=== PATIENT | male | born 1990 | race Caucasian/White ===

== ENCOUNTER 2018-06-05 05:17 | Inpatient (IN) | payer MEDICAID ==
[~2018-06-05] VITALS: Ht 182.9 cm; Wt 80.0 kg
[2018-06-05] MEDS: NALOXONE 0.4 MG/ML, 1ML IVPush PRN (05:30)
[2018-06-05] MEDS ORDERED: ONDANSETRON ODT 4 MG ONE (05:48)
[2018-06-05] MEDS ORDERED: PIPERACILLIN/TAZO/PMX 3.375GM 50 ML ONE (05:52)
[2018-06-05] MEDS ORDERED: PIPERACILLIN/TAZO/PMX 3.375GM 50 ML IVPB ONE (06:00)
[2018-06-05] MEDS ORDERED: ONDANSETRON ODT 4 MG PO ONE (06:00)
[2018-06-05 06:08] LABS: MEAN CORPUSCULAR HEMOGLOBIN 29.7 pg (27.5-34.5); MEAN CORPUSCULAR HGB CONC 34.2 g/dL (33.2-36.2); MEAN CORPUSCULAR VOLUME 86.9 fL (81-97); MEAN PLATELET VOLUME 7.7 fL (7.4-10.4); PLATELET COUNT 385 x10^3/uL (130-400); RED BLOOD COUNT 5.32 x10^6/uL (4.38-5.82); RED CELL DISTRIBUTION WIDTH 14.3 % (9.4-14.8)
[2018-06-05] MEDS ORDERED: FLUO40CA9 PO (06:10)
[2018-06-05] MEDS ORDERED: LITH150C PO (06:10)
[2018-06-05] MEDS ORDERED: GABA600T2 PO (06:10)
[2018-06-05] MEDS ORDERED: TRAM50TA2 PO (06:10)
[2018-06-05] MEDS ORDERED: MIRT15TA3 PO (06:10)
[2018-06-05] MEDS ORDERED: CLON1TAB PO (06:10)
[2018-06-05 06:16] LABS: ANION GAP 11 mmol/L (5-15); CALCIUM 9.1 mg/dL (8.5-10.1); CHLORIDE 103 mmol/L (98-107)
[2018-06-05 06:20] LABS: ALANINE AMINOTRANSFERASE 58 U/L (12-78); ALKALINE PHOSPHATASE 106 U/L (45-117); BILIRUBIN,TOTAL 0.5 mg/dL (0.2-1.0); CREATININE 1.46 mg/dL (0.7-1.3); TOTAL PROTEIN 8.4 g/dL (6.4-8.2)
[2018-06-05 06:22] LABS: ACETAMINOPHEN < 2 mcg/mL (10-30)
[2018-06-05 06:30] LABS: MD YES
[2018-06-05] MEDS ORDERED: SODIUM CHLORIDE 0.9% 1,000ML IVBOLUS ONE (06:30)
[2018-06-05 06:31] LABS: BAND#(MANUAL) 4.88 x10^3/uL; BANDS%(MANUAL) 19 % (0-7); LYMPH#(MANUAL) 1.29 x10^3/uL (1-3.4); LYMPHS% (MANUAL) 5 % (22-44); MONOS#(MANUAL) 1.29 x10^3/uL (0.3-2.7); MONOS% (MANUAL) 5 % (2-9); SEG#(MANUAL) 18.25 x10^3/uL (1.8-6.8); SEGS% (MANUAL) 71 % (42-75)
[2018-06-05 06:32] LABS: <PLATELET ESTIMATE> ADEQUATE; <PLT MORPHOLOGY> NORMAL PLT MORPH; <RBC MORPHOLOGY> NORMAL
[2018-06-05 07:05] LABS: FIO2 80 %
[2018-06-05] MEDS ORDERED: BISACODYL 10 MG SUPP PR PRN (08:00)
[2018-06-05] MEDS ORDERED: ONDANSETRON 2MG/ML, 2ML IVPush PRN (08:00)
[2018-06-05] MEDS ORDERED: POLYETHYLENE GLYCOL 17 GM PACKET PO PRN (08:00)
[2018-06-05] MEDS ORDERED: ENALAPRILAT 1.25 MG/ML, 2ML IVPush PRN (08:00)
[2018-06-05] MEDS ORDERED: ONDANSETRON ODT 4 MG PO PRN (08:00)
[2018-06-05] MEDS ORDERED: ALBUTEROL 0.5%, 20ML ONE (08:31)
[2018-06-05] MEDS: ENOXAPARIN 40 MG/0.4 ML SQ SCH (10:58)
[2018-06-05] MEDS: SENNA/DOCUSATE TABLET PO SCH (10:59)
[2018-06-05] MEDS: FLUOXETINE HCL 20 MG CAPSULE PO SCH (11:00)
[2018-06-05] MEDS: FAMOTIDINE 20 MG TABLET PO SCH ×2 (11:02→21:00)
[2018-06-05] MEDS: GABAPENTIN 300 MG CAPSULE PO SCH ×3 (11:08→21:00)
[2018-06-05] MEDS: ALBUTEROL SULFATE 2.5 MG/3 ML NPPB SCH ×4 (11:30→23:15)
[2018-06-05] MEDS ORDERED: ALBUTEROL SULFATE 2.5 MG/3 ML ONE (11:31)
[2018-06-05] MEDS: AMPICILLIN/SULBACTAM 3 GM in SODIUM CHLORIDE 0.9% 100 ML IV SCH ×3 (11:38→22:40)
[2018-06-05] MEDS: LORazepam 1MG TABLET PO PRN ×2 (12:03→15:42)
[2018-06-05 13:27] LABS: AMPHETAMINE SCREEN, URINE Positive (Negative); BARBITURATE SCREEN, URINE Negative (Negative); BENZODIAZEPINE SCREEN, URINE Positive (Negative); CANNABINOID SCREEN, URINE Negative (Negative); COCAINE SCREEN, URINE Negative (Negative); METHADONE SCREEN, URINE Negative (Negative); OPIATE SCREEN, URINE Positive (Negative)
[2018-06-05] MEDS ORDERED: LORazepam 2 MG/ML, 1ML ONE (14:14)
[2018-06-05] MEDS: SODIUM BICARBONATE 4.0%, 5ML NPPB SCH ×3 (14:19→23:00)
[2018-06-05] MEDS ORDERED: DEXTROMETHORPHAN 30 MG/5 ML ORAL SOL PO PRN (14:30)
[2018-06-05] MEDS ORDERED: LORazepam 2 MG/ML, 1ML IVPush PRN (14:30)
[2018-06-05] MEDS ORDERED: PROPOFOL 100 ML IV ONE (16:16)
[2018-06-05] MEDS ORDERED: VECURONIUM 10 MG ONE ×2 (16:18→16:39)
[2018-06-05] MEDS ORDERED: LIDOCAINE-MPF 1%, 2ML ENDO PRN (16:30)
[2018-06-05] MEDS ORDERED: PHARMACY MAY ADJ FOR RENAL FX MC SCH (16:30)
[2018-06-05] MEDS ORDERED: VECURONIUM 50 MG in SODIUM CHLORIDE 0.9% 250 ML IV PRN (17:30)
[2018-06-05] MEDS: PROPOFOL 100 ML IV PRN (19:03)
[2018-06-05 19:57] VITALS: BP 108/61
[2018-06-05] MEDS: SODIUM CHLORIDE 0.9% 1,000 ML IV SCH ×2 (20:16→22:40)
[2018-06-05] MEDS: LITHIUM CARBONATE 150 MG CAPSULE PO SCH (21:00)
[2018-06-05] MEDS: MIRTAZAPINE 15 MG TAB.RAPDIS PO SCH (21:00)
[2018-06-05] MEDS: RISPERIDONE 0.5 MG TABLET PO SCH (21:00)
[2018-06-05 21:28] LABS: CULTURE INDICATED? NO; MICROSCOPIC NOT IND
[2018-06-05] MEDS: FENTANYL PF 100 MCG/2ML IVPush PRN (22:39)
[2018-06-05] MEDS: ACETAMINOPHEN 325 MG TABLET PO PRN (22:40)
[2018-06-06] MEDS: PROPOFOL 100 ML IV PRN ×3 (00:13→08:11)
[2018-06-06] MEDS: SODIUM BICARBONATE 4.0%, 5ML NPPB SCH (02:19)
[2018-06-06] MEDS: ALBUTEROL SULFATE 2.5 MG/3 ML NPPB SCH ×6 (02:19→22:36)
[2018-06-06] MEDS: FENTANYL PF 100 MCG/2ML IVPush PRN ×6 (03:40→16:09)
[2018-06-06 04:00] VITALS: BP 114/68
[2018-06-06] MEDS: AMPICILLIN/SULBACTAM 3 GM in SODIUM CHLORIDE 0.9% 100 ML IV SCH ×4 (04:06→23:04)
[2018-06-06 04:27] LABS: MEAN CORPUSCULAR HEMOGLOBIN 29.3 pg (27.5-34.5); MEAN CORPUSCULAR VOLUME 86.2 fL (81-97); MEAN PLATELET VOLUME 7.7 fL (7.4-10.4); PLATELET COUNT 212 x10^3/uL (130-400); RED BLOOD COUNT 3.64 x10^6/uL (4.38-5.82); RED CELL DISTRIBUTION WIDTH 14.5 % (9.4-14.8)
[2018-06-06 04:35] LABS: ALANINE AMINOTRANSFERASE 38 U/L (12-78); ALBUMIN 2.7 g/dL (3.4-5.0); ANION GAP 5 mmol/L (5-15); CALCIUM 8.2 mg/dL (8.5-10.1); CHLORIDE 104 mmol/L (98-107)
[2018-06-06 04:38] LABS: ALKALINE PHOSPHATASE 53 U/L (45-117); BILIRUBIN,TOTAL 0.5 mg/dL (0.2-1.0); CREATININE 0.73 mg/dL (0.7-1.3); TOTAL PROTEIN 6.2 g/dL (6.4-8.2)
[2018-06-06 05:38] LABS: MD YES
[2018-06-06 05:41] LABS: <PLATELET ESTIMATE> ADEQUATE; <PLT MORPHOLOGY> NORMAL PLT MORPH; <RBC MORPHOLOGY> NORMAL; BAND#(MANUAL) 1.11 x10^3/uL; BANDS%(MANUAL) 7 % (0-7); LYMPH#(MANUAL) 1.26 x10^3/uL (1-3.4); LYMPHS% (MANUAL) 8 % (22-44); MONOS#(MANUAL) 0.63 x10^3/uL (0.3-2.7); MONOS% (MANUAL) 4 % (2-9); SEGS% (MANUAL) 81 % (42-75)
[2018-06-06] MEDS: FLUOXETINE HCL 20 MG CAPSULE PO SCH (08:02)
[2018-06-06] MEDS: GABAPENTIN 300 MG CAPSULE PO SCH ×3 (08:02→19:14)
[2018-06-06] MEDS: RISPERIDONE 0.5 MG TABLET PO SCH ×2 (08:02→19:14)
[2018-06-06] MEDS: SENNA/DOCUSATE TABLET PO SCH (08:02)
[2018-06-06] MEDS: FAMOTIDINE 20 MG TABLET PO SCH ×2 (08:02→19:14)
[2018-06-06] MEDS: ENOXAPARIN 40 MG/0.4 ML SQ SCH (08:03)
[2018-06-06] MEDS: LITHIUM CARBONATE 150 MG CAPSULE PO SCH ×2 (08:03→19:13)
[2018-06-06] MEDS: SODIUM CHLORIDE 0.9% 1,000 ML IV SCH (08:07)
[2018-06-06] MEDS ORDERED: FUROSEMIDE 40 MG/4 ML ONE (08:08)
[2018-06-06] MEDS: MIDAZOLAM HCL 50 MG in SODIUM CHLORIDE 0.9% 240 ML IV PRN ×3 (08:49→22:02)
[2018-06-06] MEDS: FUROSEMIDE 40 MG/4 ML IV SCH (08:49)
[2018-06-06] MEDS: VECURONIUM 50 MG in SODIUM CHLORIDE 0.9% 250 ML IV PRN ×2 (09:44→15:57)
[2018-06-06] MEDS: MIRTAZAPINE 15 MG TAB.RAPDIS PO SCH (19:14)
[2018-06-06] MEDS: FENTANYL PF 2,500 MCG in SODIUM CHLORIDE 0.9% 200 ML IV PRN (22:03)
[2018-06-07] MEDS: MIDAZOLAM HCL 50 MG in SODIUM CHLORIDE 0.9% 240 ML IV PRN ×2 (01:29→07:50)
[2018-06-07] MEDS: ALBUTEROL SULFATE 2.5 MG/3 ML NPPB SCH ×6 (03:00→22:19)
[2018-06-07 04:00] VITALS: BP 97/54
[2018-06-07 04:43] LABS: BASOPHILS # (AUTO) 0.03 x10^3/uL (0-0.1); BASOPHILS % (AUTO) 0 % (0-1); EOSINOPHILS # (AUTO) 0.32 x10^3/uL (0-0.4); EOSINOPHILS % (AUTO) 3 % (1-7); LYMPHOCYTES # (AUTO) 1.22 x10^3/uL (1-3.4); LYMPHOCYTES % (AUTO) 11 % (22-44); MD NO; MEAN CORPUSCULAR HEMOGLOBIN 30.1 pg (27.5-34.5); MEAN CORPUSCULAR HGB CONC 34.7 g/dL (33.2-36.2); MEAN CORPUSCULAR VOLUME 86.7 fL (81-97); MEAN PLATELET VOLUME 7.9 fL (7.4-10.4); MONOCYTES # (AUTO) 0.63 x10^3/uL (0.2-0.8); MONOCYTES % (AUTO) 6 % (2-9); NEUTROPHILS # (AUTO) 8.88 x10^3/uL (1.8-6.8); NEUTROPHILS % (AUTO) 80 % (42-75); PLATELET COUNT 176 x10^3/uL (130-400); RED BLOOD COUNT 3.37 x10^6/uL (4.38-5.82); RED CELL DISTRIBUTION WIDTH 14.1 % (9.4-14.8)
[2018-06-07] MEDS: AMPICILLIN/SULBACTAM 3 GM in SODIUM CHLORIDE 0.9% 100 ML IV SCH ×4 (05:53→22:39)
[2018-06-07] MEDS ORDERED: MAGNESIUM SULFATE PMX 2GM/50ML 50 ML IV ONE (07:00)
[2018-06-07] MEDS: DEXMEDETOMIDINE 1,000 MCG in SODIUM CHLORIDE 0.9% 240 ML IV PRN ×2 (07:33→23:19)
[2018-06-07 07:37] LABS: ALANINE AMINOTRANSFERASE 29 U/L (12-78); ALBUMIN 2.7 g/dL (3.4-5.0); ANION GAP 6 mmol/L (5-15); CALCIUM 8.8 mg/dL (8.5-10.1); CHLORIDE 104 mmol/L (98-107); CREATININE 0.62 mg/dL (0.7-1.3)
[2018-06-07 07:39] LABS: ALKALINE PHOSPHATASE 56 U/L (45-117); BILIRUBIN,TOTAL 0.7 mg/dL (0.2-1.0); TOTAL PROTEIN 6.6 g/dL (6.4-8.2)
[2018-06-07] MEDS ORDERED: ZIPRASIDONE 20 MG INJ IM PRN (08:30)
[2018-06-07] MEDS ORDERED: VECURONIUM 50 MG in SODIUM CHLORIDE 0.9% 250 ML IV PRN (09:00)
[2018-06-07] MEDS: ENOXAPARIN 40 MG/0.4 ML SQ SCH (09:44)
[2018-06-07] MEDS: FLUOXETINE HCL 20 MG CAPSULE PO SCH (09:45)
[2018-06-07] MEDS: SENNA/DOCUSATE TABLET PO SCH (09:45)
[2018-06-07] MEDS: FAMOTIDINE 20 MG TABLET PO SCH ×2 (09:45→20:15)
[2018-06-07] MEDS: GABAPENTIN 300 MG CAPSULE PO SCH ×3 (09:45→20:16)
[2018-06-07] MEDS: RISPERIDONE 0.5 MG TABLET PO SCH ×2 (09:45→20:16)
[2018-06-07] MEDS: LITHIUM CARBONATE 150 MG CAPSULE PO SCH ×2 (09:46→20:16)
[2018-06-07] MEDS: FUROSEMIDE 40 MG/4 ML IV SCH (09:46)
[2018-06-07] MEDS ORDERED: AcetaZOLAMIDE INJ 500 MG IVPush ONE (10:05)
[2018-06-07] MEDS ORDERED: AcetaZOLAMIDE INJ 500 MG IVPush SCH (17:00)
[2018-06-07] MEDS: MIRTAZAPINE 15 MG TAB.RAPDIS PO SCH (20:16)
[2018-06-07] MEDS: FENTANYL PF 2,500 MCG in SODIUM CHLORIDE 0.9% 200 ML IV PRN (23:19)
[2018-06-08] MEDS: ALBUTEROL SULFATE 2.5 MG/3 ML NPPB SCH ×3 (02:17→10:17)
[2018-06-08 03:58] VITALS: BP 106/67
[2018-06-08 05:12] LABS: BASOPHILS # (AUTO) 0.02 x10^3/uL (0-0.1); BASOPHILS % (AUTO) 0 % (0-1); EOSINOPHILS # (AUTO) 0.65 x10^3/uL (0-0.4); EOSINOPHILS % (AUTO) 8 % (1-7); LYMPHOCYTES # (AUTO) 1.42 x10^3/uL (1-3.4); LYMPHOCYTES % (AUTO) 16 % (22-44); MD NO; MEAN CORPUSCULAR HEMOGLOBIN 29.7 pg (27.5-34.5); MEAN CORPUSCULAR VOLUME 87.4 fL (81-97); MEAN PLATELET VOLUME 8.1 fL (7.4-10.4); MONOCYTES # (AUTO) 0.61 x10^3/uL (0.2-0.8); MONOCYTES % (AUTO) 7 % (2-9); NEUTROPHILS # (AUTO) 5.92 x10^3/uL (1.8-6.8); NEUTROPHILS % (AUTO) 69 % (42-75); PLATELET COUNT 220 x10^3/uL (130-400); RED CELL DISTRIBUTION WIDTH 13.1 % (9.4-14.8)
[2018-06-08] MEDS: AMPICILLIN/SULBACTAM 3 GM in SODIUM CHLORIDE 0.9% 100 ML IV SCH ×4 (05:38→23:15)
[2018-06-08] MEDS: SENNA/DOCUSATE TABLET PO SCH (10:14)
[2018-06-08] MEDS: RISPERIDONE 0.5 MG TABLET PO SCH (10:14)
[2018-06-08] MEDS: FLUOXETINE HCL 20 MG CAPSULE PO SCH (10:14)
[2018-06-08] MEDS: LITHIUM CARBONATE 150 MG CAPSULE PO SCH ×2 (10:14→21:47)
[2018-06-08] MEDS: ENOXAPARIN 40 MG/0.4 ML SQ SCH (10:14)
[2018-06-08] MEDS: FAMOTIDINE 20 MG TABLET PO SCH (10:14)
[2018-06-08] MEDS: GABAPENTIN 300 MG CAPSULE PO SCH ×3 (10:15→21:47)
[2018-06-08] MEDS: IBUPROFEN 600 MG TABLET PO PRN (10:15)
[2018-06-08] MEDS ORDERED: ONDANSETRON ODT 4 MG PO PRN (10:30)
[2018-06-08] MEDS: MIRTAZAPINE 15 MG TAB.RAPDIS PO SCH (21:47)
[2018-06-09 04:19] VITALS: BP 98/67
[2018-06-09] MEDS: AMPICILLIN/SULBACTAM 3 GM in SODIUM CHLORIDE 0.9% 100 ML IV SCH ×4 (05:11→23:19)
[2018-06-09] MEDS: GABAPENTIN 300 MG CAPSULE PO SCH ×3 (09:19→20:00)
[2018-06-09] MEDS: LITHIUM CARBONATE 150 MG CAPSULE PO SCH ×2 (09:19→20:00)
[2018-06-09] MEDS: ENOXAPARIN 40 MG/0.4 ML SQ SCH (09:19)
[2018-06-09] MEDS: FLUOXETINE HCL 20 MG CAPSULE PO SCH (09:19)
[2018-06-09] MEDS: SENNA/DOCUSATE TABLET PO SCH (09:21)
[2018-06-09 11:46] VITALS: BP 116/78
[2018-06-09] MEDS: ACETAMINOPHEN 325 MG TABLET PO PRN (11:48)
[2018-06-09 13:11] VITALS: BP 100/58
[2018-06-09 19:48] VITALS: BP 119/65
[2018-06-09] MEDS: MIRTAZAPINE 15 MG TAB.RAPDIS PO SCH (20:00)
[2018-06-10] MEDS ORDERED: DIPHENHYDRAMINE 25 MG CAPSULE PO ONE (01:00)
[2018-06-10 01:34] VITALS: BP 115/69
[2018-06-10] MEDS: AMPICILLIN/SULBACTAM 3 GM in SODIUM CHLORIDE 0.9% 100 ML IV SCH ×4 (05:18→23:55)
[2018-06-10 07:08] VITALS: BP 102/65
[2018-06-10] MEDS: LITHIUM CARBONATE 150 MG CAPSULE PO SCH ×2 (08:15→20:38)
[2018-06-10] MEDS: FLUOXETINE HCL 20 MG CAPSULE PO SCH (08:15)
[2018-06-10] MEDS: ACETAMINOPHEN 325 MG TABLET PO PRN (08:15)
[2018-06-10] MEDS: GABAPENTIN 300 MG CAPSULE PO SCH ×3 (08:15→20:39)
[2018-06-10] MEDS: SENNA/DOCUSATE TABLET PO SCH (08:15)
[2018-06-10] MEDS: ENOXAPARIN 40 MG/0.4 ML SQ SCH (10:39)
[2018-06-10 13:31] VITALS: BP 118/72
[2018-06-10 20:00] VITALS: BP 117/73
[2018-06-10] MEDS: MIRTAZAPINE 15 MG TAB.RAPDIS PO SCH (20:38)
[2018-06-11 01:13] VITALS: BP 99/50
[2018-06-11] MEDS: AMPICILLIN/SULBACTAM 3 GM in SODIUM CHLORIDE 0.9% 100 ML IV SCH ×4 (05:08→23:43)
[2018-06-11 08:50] VITALS: BP 108/71
[2018-06-11] MEDS: SENNA/DOCUSATE TABLET PO SCH (09:00)
[2018-06-11] MEDS: GABAPENTIN 300 MG CAPSULE PO SCH ×3 (09:45→22:17)
[2018-06-11] MEDS: LITHIUM CARBONATE 150 MG CAPSULE PO SCH ×2 (09:46→22:17)
[2018-06-11] MEDS: FLUOXETINE HCL 20 MG CAPSULE PO SCH (09:46)
[2018-06-11] MEDS: ENOXAPARIN 40 MG/0.4 ML SQ SCH (09:47)
[2018-06-11 12:50] VITALS: BP 115/75
[2018-06-11] MEDS: LORazepam 1MG TABLET PO PRN ×2 (14:52→23:43)
[2018-06-11] MEDS: METHADONE 10 MG TABLET PO PRN ×2 (15:53→23:43)
[2018-06-11] MEDS ORDERED: LORazepam 2 MG/ML, 1ML IVPush ONE (16:00)
[2018-06-11] MEDS ORDERED: ALPRazolam 1MG TABLET PO ONE (17:30)
[2018-06-11 20:08] VITALS: BP 125/75
[2018-06-11] MEDS: MIRTAZAPINE 15 MG TAB.RAPDIS PO SCH (22:17)
[2018-06-12 02:01] VITALS: BP 113/71
[2018-06-12] MEDS: AMPICILLIN/SULBACTAM 3 GM in SODIUM CHLORIDE 0.9% 100 ML IV SCH ×3 (05:22→17:35)
[2018-06-12 06:49] VITALS: BP 118/79
[2018-06-12] MEDS: METHADONE 10 MG TABLET PO PRN ×2 (08:06→16:11)
[2018-06-12] MEDS: LORazepam 1MG TABLET PO PRN ×2 (08:07→18:24)
[2018-06-12] MEDS: SENNA/DOCUSATE TABLET PO SCH (09:00)
[2018-06-12] MEDS: FLUOXETINE HCL 20 MG CAPSULE PO SCH (09:08)
[2018-06-12] MEDS: LITHIUM CARBONATE 150 MG CAPSULE PO SCH ×2 (09:09→21:54)
[2018-06-12] MEDS: GABAPENTIN 300 MG CAPSULE PO SCH ×3 (09:09→21:55)
[2018-06-12] MEDS: ENOXAPARIN 40 MG/0.4 ML SQ SCH (09:09)
[2018-06-12 14:04] VITALS: BP 107/54
[2018-06-12 19:50] VITALS: BP 125/70
[2018-06-12] MEDS: AMOXICILLIN/CLAV 875-125MG TABLET PO SCH (20:22)
[2018-06-12] MEDS: MIRTAZAPINE 15 MG TAB.RAPDIS PO SCH (21:54)
[2018-06-13 03:55] VITALS: BP 114/52
[2018-06-13] MEDS: METHADONE 10 MG TABLET PO PRN ×2 (05:18→13:19)
[2018-06-13 05:50] LABS: BASOPHILS # (AUTO) 0.04 x10^3/uL (0-0.1); BASOPHILS % (AUTO) 1 % (0-1); EOSINOPHILS % (AUTO) 8 % (1-7); LYMPHOCYTES # (AUTO) 2.73 x10^3/uL (1-3.4); LYMPHOCYTES % (AUTO) 30 % (22-44); MD NO; MEAN CORPUSCULAR HEMOGLOBIN 29.2 pg (27.5-34.5); MEAN CORPUSCULAR HGB CONC 33.8 g/dL (33.2-36.2); MEAN CORPUSCULAR VOLUME 86.3 fL (81-97); MEAN PLATELET VOLUME 7.6 fL (7.4-10.4); MONOCYTES # (AUTO) 0.65 x10^3/uL (0.2-0.8); MONOCYTES % (AUTO) 7 % (2-9); NEUTROPHILS # (AUTO) 5.13 x10^3/uL (1.8-6.8); NEUTROPHILS % (AUTO) 56 % (42-75); PLATELET COUNT 410 x10^3/uL (130-400); RED BLOOD COUNT 4.24 x10^6/uL (4.38-5.82)
[2018-06-13 05:59] LABS: ANION GAP 6 mmol/L (5-15); CALCIUM 8.8 mg/dL (8.5-10.1); CHLORIDE 107 mmol/L (98-107)
[2018-06-13 06:01] LABS: CREATININE 1.13 mg/dL (0.7-1.3)
[2018-06-13] MEDS: AMOXICILLIN/CLAV 875-125MG TABLET PO SCH ×2 (07:31→19:30)
[2018-06-13 07:36] VITALS: BP 111/72
[2018-06-13] MEDS: SENNA/DOCUSATE TABLET PO SCH (09:00)
[2018-06-13] MEDS: ENOXAPARIN 40 MG/0.4 ML SQ SCH (09:28)
[2018-06-13] MEDS: LITHIUM CARBONATE 150 MG CAPSULE PO SCH ×2 (09:31→21:00)
[2018-06-13] MEDS: FLUOXETINE HCL 20 MG CAPSULE PO SCH (09:31)
[2018-06-13] MEDS: GABAPENTIN 300 MG CAPSULE PO SCH ×2 (09:32→21:00)
[2018-06-13] MEDS: LORazepam 1MG TABLET PO PRN ×2 (09:36→13:23)
[2018-06-13 13:43] VITALS: BP 130/80
[2018-06-13] MEDS ORDERED: ALPRazolam 1MG TABLET PO ONE (16:30)
[2018-06-13] MEDS ORDERED: ZIPRASIDONE 20 MG INJ IM ONE ×2 (18:13→18:30)
[2018-06-13] MEDS ORDERED: LORazepam 2 MG/ML, 1ML ONE (18:31)
[2018-06-13] MEDS ORDERED: DIPHENHYDRAMINE 50 MG/ML, 1ML ONE (18:32)
[2018-06-13 19:20] VITALS: BP 106/59
[2018-06-13] MEDS ORDERED: DIPHENHYDRAMINE 50 MG/ML, 1ML IM ONE (20:00)
[2018-06-13] MEDS ORDERED: LORazepam 2 MG/ML, 1ML IM ONE (20:00)
[2018-06-13] MEDS: MIRTAZAPINE 15 MG TAB.RAPDIS PO SCH (21:00)
[2018-06-14] MEDS: METHADONE 10 MG TABLET PO PRN ×3 (01:59→19:26)
[2018-06-14] MEDS: LORazepam 1MG TABLET PO PRN ×5 (02:00→22:29)
[2018-06-14 02:24] VITALS: BP 116/64
[2018-06-14] MEDS: ACETAMINOPHEN 325 MG TABLET PO PRN (02:37)
[2018-06-14 07:10] VITALS: BP 92/49
[2018-06-14] MEDS: AMOXICILLIN/CLAV 875-125MG TABLET PO SCH ×2 (08:03→20:00)
[2018-06-14] MEDS: LITHIUM CARBONATE 150 MG CAPSULE PO SCH ×2 (08:04→21:55)
[2018-06-14] MEDS: FLUOXETINE HCL 20 MG CAPSULE PO SCH (08:04)
[2018-06-14] MEDS: GABAPENTIN 300 MG CAPSULE PO SCH ×3 (08:04→21:55)
[2018-06-14] MEDS: SENNA/DOCUSATE TABLET PO SCH (08:05)
[2018-06-14] MEDS: ENOXAPARIN 40 MG/0.4 ML SQ SCH (10:11)
[2018-06-14 12:43] VITALS: BP 122/75
[2018-06-14] MEDS ORDERED: AMOX1TAB12 PO (17:20)
[2018-06-14 21:21] VITALS: BP 124/72
[2018-06-14] MEDS: MIRTAZAPINE 15 MG TAB.RAPDIS PO SCH (21:55)
[2018-06-15 01:52] VITALS: BP 106/70
[2018-06-15] MEDS: LORazepam 1MG TABLET PO PRN ×5 (03:41→21:46)
[2018-06-15] MEDS: METHADONE 10 MG TABLET PO PRN ×3 (03:42→21:46)
[2018-06-15] MEDS: SENNA/DOCUSATE TABLET PO SCH (09:00)
[2018-06-15 09:03] VITALS: BP 115/79
[2018-06-15] MEDS: FLUOXETINE HCL 20 MG CAPSULE PO SCH (09:17)
[2018-06-15] MEDS: GABAPENTIN 300 MG CAPSULE PO SCH ×3 (09:17→21:06)
[2018-06-15] MEDS: LITHIUM CARBONATE 150 MG CAPSULE PO SCH ×2 (09:17→21:06)
[2018-06-15 12:51] VITALS: BP 118/75
[2018-06-15 21:02] VITALS: BP 116/63
[2018-06-15] MEDS: MIRTAZAPINE 15 MG TAB.RAPDIS PO SCH (21:06)
[2018-06-16 02:48] VITALS: BP 118/68
[2018-06-16] MEDS: LORazepam 1MG TABLET PO PRN ×4 (02:48→20:39)
[2018-06-16 06:07] LABS: FOLATE LEVEL 14.5 ng/mL (3.1-17.5)
[2018-06-16] MEDS: METHADONE 10 MG TABLET PO PRN ×2 (06:34→13:45)
[2018-06-16] MEDS: SENNA/DOCUSATE TABLET PO SCH ×2 (09:00→09:42)
[2018-06-16] MEDS: FERROUS SULFATE 325 MG TABLET PO SCH (09:41)
[2018-06-16] MEDS: GABAPENTIN 300 MG CAPSULE PO SCH ×3 (09:42→20:39)
[2018-06-16] MEDS: LITHIUM CARBONATE 150 MG CAPSULE PO SCH ×2 (09:43→20:39)
[2018-06-16] MEDS: FLUOXETINE HCL 20 MG CAPSULE PO SCH (09:53)
[2018-06-16 10:04] VITALS: BP 116/56
[2018-06-16 15:50] VITALS: BP 94/59
[2018-06-16 20:39] VITALS: BP 112/71
[2018-06-16] MEDS: MIRTAZAPINE 15 MG TAB.RAPDIS PO SCH (20:39)
[2018-06-16] MEDS ORDERED: METHADONE 10 MG TABLET ONE (21:52)
[2018-06-16] MEDS: METHADONE 5 MG TABLET PO PRN (21:53)
[2018-06-17 03:12] VITALS: BP 105/70
[2018-06-17] MEDS: LORazepam 1MG TABLET PO PRN ×2 (03:29→07:30)
[2018-06-17] MEDS: METHADONE 5 MG TABLET PO PRN ×3 (05:50→23:43)
[2018-06-17] MEDS: GABAPENTIN 300 MG CAPSULE PO SCH ×3 (07:29→23:43)
[2018-06-17] MEDS: SENNA/DOCUSATE TABLET PO SCH ×2 (07:29→09:00)
[2018-06-17] MEDS: LITHIUM CARBONATE 150 MG CAPSULE PO SCH ×2 (07:30→23:44)
[2018-06-17] MEDS: FLUOXETINE HCL 20 MG CAPSULE PO SCH (07:30)
[2018-06-17 08:15] VITALS: BP_SYST 108
[2018-06-17] MEDS: OLANZAPINE 5 MG TABLET PO PRN (14:22)
[2018-06-17] MEDS ORDERED: ZIPRASIDONE 20 MG INJ IM PRN (14:30)
[2018-06-17] MEDS: IBUPROFEN 600 MG TABLET PO PRN (17:33)
[2018-06-17 19:29] VITALS: BP 119/74
[2018-06-17] MEDS: MIRTAZAPINE 15 MG TAB.RAPDIS PO SCH (21:00)
[2018-06-18] MEDS: OLANZAPINE 5 MG TABLET PO PRN ×3 (06:04→17:48)
[2018-06-18] MEDS: IBUPROFEN 600 MG TABLET PO PRN ×2 (06:04→21:24)
[2018-06-18] MEDS: FLUOXETINE HCL 20 MG CAPSULE PO SCH ×2 (09:00→09:50)
[2018-06-18] MEDS: SENNA/DOCUSATE TABLET PO SCH (09:00)
[2018-06-18] MEDS: GABAPENTIN 300 MG CAPSULE PO SCH ×3 (09:50→21:24)
[2018-06-18] MEDS: LITHIUM CARBONATE 150 MG CAPSULE PO SCH (09:50)
[2018-06-18] MEDS: METHADONE 5 MG TABLET PO PRN ×2 (09:56→21:24)
[2018-06-18] MEDS: FERROUS SULFATE 325 MG TABLET PO SCH (10:46)
[2018-06-18 10:47] VITALS: BP_SYST 114
[2018-06-18 20:00] VITALS: BP 103/64
[2018-06-18] MEDS: MIRTAZAPINE 15 MG TAB.RAPDIS PO SCH (21:25)
[2018-06-19] MEDS: OLANZAPINE 5 MG TABLET PO PRN ×3 (02:42→15:47)
[2018-06-19] MEDS: IBUPROFEN 600 MG TABLET PO PRN ×3 (06:14→18:36)
[2018-06-19] MEDS: METHADONE 5 MG TABLET PO PRN ×3 (08:04→23:48)
[2018-06-19] MEDS: GABAPENTIN 300 MG CAPSULE PO SCH ×3 (08:05→23:47)
[2018-06-19 08:06] VITALS: BP 118/88
[2018-06-19] MEDS: SENNA/DOCUSATE TABLET PO SCH (08:07)
[2018-06-19] MEDS: FLUOXETINE HCL 20 MG CAPSULE PO SCH (08:08)
[2018-06-19 19:50] VITALS: BP 116/68
[2018-06-19] MEDS: MIRTAZAPINE 15 MG TAB.RAPDIS PO SCH (23:47)
[2018-06-20] MEDS: IBUPROFEN 600 MG TABLET PO PRN ×2 (02:49→13:50)
[2018-06-20] MEDS: OLANZAPINE 5 MG TABLET PO PRN ×3 (02:49→13:51)
[2018-06-20] MEDS: FERROUS SULFATE 325 MG TABLET PO SCH (08:08)
[2018-06-20] MEDS: FLUOXETINE HCL 20 MG CAPSULE PO SCH (08:08)
[2018-06-20] MEDS: GABAPENTIN 300 MG CAPSULE PO SCH ×3 (08:09→20:14)
[2018-06-20] MEDS: SENNA/DOCUSATE TABLET PO SCH (08:09)
[2018-06-20 08:20] VITALS: BP 113/67
[2018-06-20] MEDS: BACLOFEN 10 MG TABLET PO PRN ×2 (10:31→18:30)
[2018-06-20] MEDS: METHADONE 5 MG TABLET PO PRN ×2 (10:31→18:30)
[2018-06-20 19:27] VITALS: BP 121/72
[2018-06-20] MEDS: MIRTAZAPINE 15 MG TAB.RAPDIS PO SCH (20:14)
[2018-06-21] MEDS: IBUPROFEN 600 MG TABLET PO PRN ×3 (00:52→23:19)
[2018-06-21] MEDS: OLANZAPINE 5 MG TABLET PO PRN ×3 (00:52→18:29)
[2018-06-21] MEDS: METHADONE 5 MG TABLET PO PRN ×3 (06:14→23:03)
[2018-06-21] MEDS: FLUOXETINE HCL 20 MG CAPSULE PO SCH (08:31)
[2018-06-21] MEDS: GABAPENTIN 300 MG CAPSULE PO SCH ×3 (08:31→20:07)
[2018-06-21] MEDS: SENNA/DOCUSATE TABLET PO SCH (08:35)
[2018-06-21 08:46] VITALS: BP 118/68
[2018-06-21] MEDS: BACLOFEN 10 MG TABLET PO PRN ×2 (12:41→20:33)
[2018-06-21 19:16] VITALS: BP 117/66
[2018-06-21] MEDS: MIRTAZAPINE 15 MG TAB.RAPDIS PO SCH (20:06)
[2018-06-22] MEDS: IBUPROFEN 600 MG TABLET PO PRN ×2 (05:00→10:59)
[2018-06-22] MEDS: OLANZAPINE 5 MG TABLET PO PRN ×2 (06:06→13:58)
[2018-06-22 08:01] VITALS: BP 97/57
[2018-06-22] MEDS: FERROUS SULFATE 325 MG TABLET PO SCH (08:33)
[2018-06-22] MEDS: SENNA/DOCUSATE TABLET PO SCH (08:34)
[2018-06-22] MEDS: FLUOXETINE HCL 20 MG CAPSULE PO SCH (08:34)
[2018-06-22] MEDS: GABAPENTIN 300 MG CAPSULE PO SCH ×3 (08:34→20:46)
[2018-06-22] MEDS: METHADONE 5 MG TABLET PO PRN (08:48)
[2018-06-22] MEDS: BACLOFEN 10 MG TABLET PO PRN ×2 (08:48→20:46)
[2018-06-22 19:41] VITALS: BP 111/70
[2018-06-22] MEDS: MIRTAZAPINE 15 MG TAB.RAPDIS PO SCH (20:46)
[2018-06-23] MEDS: IBUPROFEN 600 MG TABLET PO PRN ×2 (00:25→06:15)
[2018-06-23] MEDS: OLANZAPINE 5 MG TABLET PO PRN ×3 (00:26→13:58)
[2018-06-23] MEDS: FLUOXETINE HCL 20 MG CAPSULE PO SCH (08:13)
[2018-06-23] MEDS: GABAPENTIN 300 MG CAPSULE PO SCH ×3 (08:13→20:16)
[2018-06-23] MEDS: SENNA/DOCUSATE TABLET PO SCH (08:16)
[2018-06-23 08:28] VITALS: BP 119/74
[2018-06-23] MEDS: METHADONE 5 MG TABLET PO PRN (10:53)
[2018-06-23] MEDS: BACLOFEN 10 MG TABLET PO PRN ×3 (11:53→20:17)
[2018-06-23 19:32] VITALS: BP 136/87
[2018-06-23] MEDS: MIRTAZAPINE 15 MG TAB.RAPDIS PO SCH (20:16)
[2018-06-24] MEDS: OLANZAPINE 5 MG TABLET PO PRN ×4 (01:50→20:07)
[2018-06-24 07:55] VITALS: BP 108/59
[2018-06-24] MEDS: FLUOXETINE HCL 20 MG CAPSULE PO SCH (08:08)
[2018-06-24] MEDS: FERROUS SULFATE 325 MG TABLET PO SCH (08:08)
[2018-06-24] MEDS: GABAPENTIN 300 MG CAPSULE PO SCH ×3 (08:08→20:03)
[2018-06-24] MEDS: SENNA/DOCUSATE TABLET PO SCH (08:09)
[2018-06-24] MEDS: METHADONE 5 MG TABLET PO PRN (11:22)
[2018-06-24] MEDS: BACLOFEN 10 MG TABLET PO PRN ×2 (16:00→20:07)
[2018-06-24 19:31] VITALS: BP 124/73
[2018-06-24] MEDS: MIRTAZAPINE 15 MG TAB.RAPDIS PO SCH (20:03)
[2018-06-25] MEDS: OLANZAPINE 5 MG TABLET PO PRN ×2 (02:04→09:45)
[2018-06-25] MEDS: IBUPROFEN 600 MG TABLET PO PRN ×2 (02:04→13:56)
[2018-06-25] MEDS: BACLOFEN 10 MG TABLET PO PRN (04:16)
[2018-06-25] MEDS: GABAPENTIN 300 MG CAPSULE PO SCH ×2 (08:40→15:50)
[2018-06-25] MEDS: SENNA/DOCUSATE TABLET PO SCH (08:40)
[2018-06-25] MEDS: FLUOXETINE HCL 20 MG CAPSULE PO SCH (08:40)
[2018-06-25] MEDS: METHADONE 5 MG TABLET PO PRN (11:45)
== END 2018-06-25 16:05 | DRG 917 ==
LOC: MERGE 05:17 → EDBD 05:17 → ED 06:59 → EDIP 07:44 → CCU 08:48 → 4WST 06-09 11:29 → 4EST 06-10 00:20 → 2N 06-17 03:06
PROVIDERS: ADMIT Internal Medicine; ATTEND Internal Medicine
PROC: 5A1945Z Respiratory Ventilation, 24-96 Consecutive Hours (ICD-10-PCS; principal; 2018-06-06)
PROC: 0BH17EZ Insertion of Endotracheal Airway into Trachea, Via Natural or Artificial Opening (ICD-10-PCS; 2018-06-06)
DX: T43.622A Poisoning by amphetamines, intentional self-harm, initial encounter (principal); A41.9 Sepsis, unspecified organism; G93.40 Encephalopathy, unspecified; J15.211 Pneumonia due to Methicillin susceptible Staphylococcus aureus; J69.0 Pneumonitis due to inhalation of food and vomit; J96.01 Acute respiratory failure with hypoxia; N17.0 Acute kidney failure with tubular necrosis; R65.20 Severe sepsis without septic shock; F11.23 Opioid dependence with withdrawal; Z99.11 Dependence on respirator [ventilator] status; T40.1X2A Poisoning by heroin, intentional self-harm, initial encounter; D50.9 Iron deficiency anemia, unspecified; F15.10 Other stimulant abuse, uncomplicated; F31.9 Bipolar disorder, unspecified; S61.512A Laceration without foreign body of left wrist, initial encounter; S61.511A Laceration without foreign body of right wrist, initial encounter; F43.10 Post-traumatic stress disorder, unspecified; F90.9 Attention-deficit hyperactivity disorder, unspecified type; G47.00 Insomnia, unspecified; X78.9XXA Intentional self-harm by unspecified sharp object, initial encounter; Z59.0 Homelessness; Z78.1 Physical restraint status; Y92.89 Other specified places as the place of occurrence of the external cause; Z88.2 Allergy status to sulfonamides; Z88.6 Allergy status to analgesic agent; Z79.899 Other long term (current) drug therapy; Z81.1 Family history of alcohol abuse and dependence
CPT/HCPCS: 36415; 36600; 84145; 87806; 99291; J7613; 71045; 80048; 80053; 80074; 80178; 80307; 81003; 82607; 82746; 82803; 82962; 83540; 83550; 83605; 83735; 84478; 85025; 87040; 87070; 87077; 87081; 87186; 87205; 93005; 94002; 94003; 94640; 96365; 96375; G0378; J0295; J1650; J1940; J2250; J2310; J2405; J2543; J2704; J3010; J3486; Q0162; G0475; J1120; J1200; J2060; J3475; J7030; J7050; Q0163

== ENCOUNTER 2018-07-08 18:10 | Observation (INO) | payer MEDICAID ==
[~2018-07-08] VITALS: Ht 185.4 cm; Wt 80.1 kg
[~2018-07-08 18:10] MED LIST: AMOX1TAB12 PO; CLON1TAB PO; FLUO40CA9 PO; GABA600T2 PO; LITH150C PO; MIRT15TA3 PO; TRAM50TA2 PO
[2018-07-08] MEDS ORDERED: BUSP5TAB2 PO (18:20)
[2018-07-08] MEDS ORDERED: TRAZ-137 PO (18:20)
[2018-07-08 18:58] LABS: BASOPHILS # (AUTO) 0.02 x10^3/uL (0-0.1); BASOPHILS % (AUTO) 0 % (0-1); EOSINOPHILS % (AUTO) 4 % (1-7); LYMPHOCYTES % (AUTO) 19 % (22-44); MD NO; MEAN CORPUSCULAR HEMOGLOBIN 29.4 pg (27.5-34.5); MEAN CORPUSCULAR HGB CONC 33.7 g/dL (33.2-36.2); MEAN CORPUSCULAR VOLUME 87.4 fL (81-97); MEAN PLATELET VOLUME 8.4 fL (7.4-10.4); MONOCYTES # (AUTO) 0.77 x10^3/uL (0.2-0.8); MONOCYTES % (AUTO) 10 % (2-9); NEUTROPHILS # (AUTO) 5.39 x10^3/uL (1.8-6.8); NEUTROPHILS % (AUTO) 68 % (42-75); PLATELET COUNT 290 x10^3/uL (130-400); RED BLOOD COUNT 4.69 x10^6/uL (4.38-5.82); RED CELL DISTRIBUTION WIDTH 14.4 % (9.4-14.8)
[2018-07-08 19:10] LABS: ALBUMIN 3.8 g/dL (3.4-5.0); ANION GAP 9 mmol/L (5-15); CALCIUM 8.7 mg/dL (8.5-10.1); CHLORIDE 104 mmol/L (98-107); CREATININE 0.84 mg/dL (0.7-1.3)
[2018-07-08 19:18] LABS: ACETAMINOPHEN < 2 mcg/mL (10-30); SALICYLATE LEVEL < 1.7 mg/dL (2.8-20.0)
[2018-07-08 23:48] LABS: AMPHETAMINE SCREEN, URINE Positive (Negative); BARBITURATE SCREEN, URINE Negative (Negative); BENZODIAZEPINE SCREEN, URINE Negative (Negative); CANNABINOID SCREEN, URINE Negative (Negative); COCAINE SCREEN, URINE Negative (Negative); METHADONE SCREEN, URINE Negative (Negative); OPIATE SCREEN, URINE Positive (Negative)
[2018-07-09] MEDS ORDERED: LORazepam 1MG TABLET PO ONE
[2018-07-09] MEDS ORDERED: LORazepam 1MG TABLET ONE (00:29)
[2018-07-09] MEDS ORDERED: TEMPLATE NON-FORMULARY MED. (Gabapentin** 600 MG) PO SCH (03:00)
[2018-07-09] MEDS ORDERED: DOCUSATE 100 MG CAPSULE PO PRN (03:00)
[2018-07-09] MEDS ORDERED: GABAPENTIN 300 MG CAPSULE ONE (03:23)
[2018-07-09] MEDS: BUSPIRONE 5 MG TABLET PO SCH ×4 (04:02→20:14)
[2018-07-09 07:59] VITALS: BP 112/63
[2018-07-09] MEDS: FLUOXETINE HCL 20 MG CAPSULE PO SCH (08:37)
[2018-07-09] MEDS: GABAPENTIN 300 MG CAPSULE PO SCH ×3 (08:37→20:14)
[2018-07-09 19:45] VITALS: BP 115/69
[2018-07-09] MEDS: TRAZODONE 100MG TABLET PO SCH (20:14)
[2018-07-10] MEDS: BUSPIRONE 5 MG TABLET PO SCH ×3 (08:55→20:58)
[2018-07-10] MEDS: FLUOXETINE HCL 20 MG CAPSULE PO SCH (08:55)
[2018-07-10] MEDS: GABAPENTIN 300 MG CAPSULE PO SCH ×3 (08:56→20:58)
[2018-07-10 09:51] VITALS: BP 114/82
[2018-07-10] MEDS: OLANZAPINE 5 MG TABLET PO PRN ×2 (09:53→20:58)
[2018-07-10] MEDS ORDERED: IBUPROFEN 600 MG TABLET ONE (16:26)
[2018-07-10] MEDS: IBUPROFEN 600 MG TABLET PO PRN ×2 (16:27→20:58)
[2018-07-10 19:32] VITALS: BP 103/65
[2018-07-10] MEDS: TRAZODONE 100MG TABLET PO SCH (20:58)
[2018-07-11 08:20] VITALS: BP 110/67
[2018-07-11] MEDS: GABAPENTIN 300 MG CAPSULE PO SCH ×3 (09:07→21:12)
[2018-07-11] MEDS: BUSPIRONE 5 MG TABLET PO SCH ×3 (09:07→21:12)
[2018-07-11] MEDS: FLUOXETINE HCL 20 MG CAPSULE PO SCH (09:07)
[2018-07-11] MEDS: OLANZAPINE 5 MG TABLET PO PRN ×2 (09:12→18:36)
[2018-07-11] MEDS: IBUPROFEN 600 MG TABLET PO PRN ×2 (09:12→18:34)
[2018-07-11 20:00] VITALS: BP 101/69
[2018-07-11] MEDS: TRAZODONE 100MG TABLET PO SCH (21:12)
[2018-07-12] MEDS: OLANZAPINE 5 MG TABLET PO PRN ×3 (06:37→19:53)
[2018-07-12 08:35] VITALS: BP 100/52
[2018-07-12] MEDS: FLUOXETINE HCL 20 MG CAPSULE PO SCH (08:52)
[2018-07-12] MEDS: BUSPIRONE 5 MG TABLET PO SCH ×3 (08:52→19:52)
[2018-07-12] MEDS: GABAPENTIN 300 MG CAPSULE PO SCH ×3 (08:52→19:52)
[2018-07-12] MEDS: hydrOXyzine 10MG TABLET PO PRN (14:17)
[2018-07-12 19:43] VITALS: BP 130/72
[2018-07-12] MEDS: TRAZODONE 100MG TABLET PO SCH (19:52)
[2018-07-12] MEDS: IBUPROFEN 600 MG TABLET PO PRN (19:53)
[2018-07-13] MEDS: hydrOXyzine 10MG TABLET PO PRN (03:38)
[2018-07-13 08:05] VITALS: BP 104/69
[2018-07-13] MEDS: BUSPIRONE 5 MG TABLET PO SCH (08:15)
[2018-07-13] MEDS: FLUOXETINE HCL 20 MG CAPSULE PO SCH (08:15)
[2018-07-13] MEDS: GABAPENTIN 300 MG CAPSULE PO SCH (08:15)
[2018-07-13] MEDS: OLANZAPINE 5 MG TABLET PO PRN (08:20)
[2018-07-13] MEDS ORDERED: HALOPERIDOL 5 MG/ML ONE (10:48)
[2018-07-13] MEDS ORDERED: HALOPERIDOL 5 MG/ML IM PRN (11:00)
[2018-07-13] MEDS ORDERED: HALOPERIDOL 5 MG/ML IV ONE (11:00)
[2018-07-13 11:14] VITALS: BP 115/77
== END 2018-07-13 13:19 | disposition home or self-care (01) ==
LOC: ED 21:17 → EDIP 07-09 02:16 → 2N 07-09 03:47 → UNDODISOB 07-13 13:10
PROVIDERS: ADMIT Internal Medicine; ATTEND Internal Medicine
DX: R45.851 Suicidal ideations (principal); F39 Unspecified mood [affective] disorder; F11.20 Opioid dependence, uncomplicated; F10.10 Alcohol abuse, uncomplicated; F15.10 Other stimulant abuse, uncomplicated; F31.9 Bipolar disorder, unspecified; F43.10 Post-traumatic stress disorder, unspecified; F60.9 Personality disorder, unspecified; Z81.1 Family history of alcohol abuse and dependence; Z87.891 Personal history of nicotine dependence; Z91.5 Personal history of self-harm; Z88.2 Allergy status to sulfonamides; Z88.8 Allergy status to other drugs, medicaments and biological substances; Z79.899 Other long term (current) drug therapy
CPT/HCPCS: 36415; 80048; 80307; 80329; 82040; 85025; 96374; 99285; G0378; J1630; G0480